=== PATIENT | female | born 1975 | race Caucasian/White ===

== ENCOUNTER 2017-08-06 11:38 | Emergency (ER) | payer BC ==
[2017-08-06] MEDS ORDERED: Ampicillin/Sulbactam Na 3 GM in Sodium Chloride 0.9% 100 ML IV ONE (12:20)
--- NOTE | 2017-08-06 12:29 | EDM.PDOC ---
ED HPI GENERAL MEDICAL PROBLEM - General Chief Complaint: Upper Extremity Injury/Pain Stated Complaint: RING FINGER IS SWOLLEN Time Seen by Provider: 08/06/17 12:00 Source of Information: Reports: Patient History Limitations: Reports: No Limitations - History of Present Illness INITIAL COMMENTS - FREE TEXT/NARRATIVE: HISTORY AND PHYSICAL: History of present illness: [Patient comes to the emergency room due to swelling of her left ring finger and pain. Her cat bit and scratched her on the left ring finger and left forearm yesterday, and today she woke up with such swelling that she was unable to remove her wedding bands. She's had no fever or chills, nausea or vomiting. She's taken 1 dose of ibuprofen this morning. She has no other complaints or concerns at this time.] Review of systems: As per history of present illness and below otherwise all systems reviewed and negative. Past medical history: As per history of present illness and as reviewed below otherwise noncontributory. Surgical history: As per history of present illness and as reviewed below otherwise noncontributory. Social history: No reported history of drug or alcohol abuse. Family history: As per history of present illness and as reviewed below otherwise noncontributory. Physical exam: HEENT: Atraumatic, normocephalic. Extremities: Significant swelling and erythema to her left ring finger just distal to her wedding bands. There is a puncture leslie the center of this area. Capillary Refill less than 2 seconds, sensation is intact. Linear scratches present to left dorsal middle finger, and is draining yellow discharge. Neurovascular unremarkable. Neuro: Awake, alert, oriented. Motor and sensory unremarkable throughout. Exam nonfocal. Diagnostics: [X-ray left middle and ring fingers] Therapeutics: [Unasyn 3 g IV, Adacel update] Impression: [Cat bite Cellulitis left ring finger] Plan: [Tetanus update given in ER. Unasyn 3 g given in ER, x-ray shows no gases in soft tissue, and no bony abnormality. Rx written for Augmentin 875mg (#20) si po BID 0 RF's. Strict return precautions are reviewed with patient. OTC analgesics prn. Pt is in agreement w/ today's plan. All questions are answered and concerns are addressed. ] Definitive disposition and diagnosis as appropriate pending reevaluation and review of above. left 4th finger Pain Score (Numeric/FACES): 3 - Related Data Allergies Allergy/AdvReac Type Severity Reaction Status Date / Time No Known Allergies Allergy Verified 08/06/17 11:57 Home Meds: Home Meds Escitalopram [Lexapro] 10 mg PO DAILY 08/06/17 [History] Past Medical History - Infectious Disease History Infectious Disease History: Reports: Chicken Pox - Past Surgical History Female Surgical History: Reports: Section, Tubal Ligation Social & Family History - Family History Family Medical History: Noncontributory - Tobacco Use Smoking Status *Q: Never Smoker - Alcohol Use Days Per Week of Alcohol Use: 2 Number of Drinks Per Day: 2 Total Drinks Per Week: 4 - Recreational Drug Use Recreational Drug Use: No Review of Systems - Review of Systems Review Of Systems: ROS reveals no pertinent complaints other than HPI. ED EXAM, GENERAL - Physical Exam Exam: See Below Course - Vital Signs Last Recorded V/S: Last Vital Signs Temp 98.2 F 08/06/17 11:57 Pulse 78 08/06/17 13:30 Resp 18 08/06/17 13:30 BP 100/58 L 08/06/17 13:30 Pulse Ox 99 08/06/17 13:30 - Orders/Labs/Meds Orders: Active Orders 24 hr Category Date Time Status Vaccines to be Administered [RC] PER UNIT ROUTINE Care 08/06/17 13:28 Ordered Fingers Multiple Lt [CR] Stat Exams 08/06/17 12:25 Taken Meds: Medications Discontinued Medications Generic Name Dose Route Start Last Admin Trade Name Freq PRN Reason Stop Dose Admin Diphtheria/Tetanus/Acell Pertussis 0.5 ml 08/06/17 13:28 Adacel IM 08/06/17 13:29 .ONCE ONE Ampicillin Sodium/Sulbactam 100 mls @ 200 mls/hr 08/06/17 12:20 08/06/17 12: 41 Sodium 3 gm/ Sodium Chloride IV 08/06/17 12:49 200 mls/hr ONETIME ONE Administration Departure - Departure Time of Disposition: 13:40 Disposition: Home, Self-Care 01 Condition: Good Clinical Impression: Cellulitis of ring finger of left hand, Cat bite of finger - Discharge Information Referrals: PCP,None [Primary Care Provider] - Forms: ED Department Discharge Additional Instructions: The following information is given to patients seen in the emergency department who are being discharged to home. This information is to outline your options for follow-up care. We provide all patients seen in our emergency department with a follow-up referral. The need for follow-up, as well as the timing and circumstances, are variable depending upon the specifics of your emergency department visit. If you don't have a primary care physician on staff, we will provide you with a referral. We always advise you to contact your personal physician following an emergency department visit to inform them of the circumstance of the visit and for follow-up with them and/or the need for any referrals to a consulting specialist. The emergency department will also refer you to a specialist when appropriate. This referral assures that you have the opportunity for follow-up care with a specialist. All of these measure are taken in an effort to provide you with optimal care, which includes your follow-up. Under all circumstances we always encourage you to contact your private physician who remains a resource for coordinating your care. When calling for follow-up care, please make the office aware that this follow-up is from your recent emergency room visit. If for any reason you are refused follow-up, please contact the [facility] emergency department at and asked to speak to the emergency department charge nurse. [facility] [address] [place] [id number] Follow-up with your local primary care provider at the clinic listed above in the next 48-72 hours. Tylenol or ibuprofen as needed for discomfort. Take antibiotics as prescribed. Take this medication with food or dairy as it may give you an upset stomach. This is not an allergic reaction but is a normal result of the medicine. Return to ER as needed as discussed. - My Orders Last 24 Hours: My Active Orders 08/06/17 12:25 Fingers Multiple Lt [CR] Stat 08/06/17 13:28 Vaccines to be Administered [RC] PER UNIT ROUTINE - Assessment/Plan Last 24 Hours: My Active Orders 08/06/17 12:25 Fingers Multiple Lt [CR] Stat 08/06/17 13:28 Vaccines to be Administered [RC] PER UNIT ROUTINE
[2017-08-06] MEDS ORDERED: Diphtheria,Pertussis(Acell),Tetanus Vaccine 0.5 ML Syringe IM ONE (13:28)
--- NOTE | 2017-08-07 14:31 | CR ---
EXAM DATE: 08/06/17 PATIENT'S AGE: 42 Patient: ZENOBIA ACLLAHANGER Facility: [place], [place] Site . Site : [id number] Study: XRay Extremity Left fingers [id number] 12:52:49 PM Ordering Physician: Doctor Romo Final Report: HISTORY: CAT bite. Finger swelling. COMPARISON: None. FINDINGS: The bones and joint spaces are preserved. No evidence for acute fracture or dislocation. Soft tissue swelling near the proximal interphalangeal joint of the 4th finger. Dictated by Zenobia Varghese MD @ Aug 06 2017 1:44PM (Electronic Signature) Report Signed by Proxy. MARIELA
== END 2017-08-06 13:42 | disposition home or self-care (01) ==
LOC: MW.ED 11:38
DX: S61.255A Open bite of left ring finger without damage to nail, initial encounter (principal); L03.012 Cellulitis of left finger; Z23 Encounter for immunization; W55.01XA Bitten by cat, initial encounter
CPT/HCPCS: 73140; 90715; 96365; 99283; G0390; J0295; J7030